=== PATIENT | male | born 1960 | race Caucasian/White ===

== ENCOUNTER 2017-11-21 08:50 | Emergency (ER) | payer BC ==
[2017-11-21] MEDS: LIDOCAINE WITH 8.4% SOD BICARB 3 ML DISP.SYRIN. INJ (09:28)
[2017-11-21] MEDS: DIPHTH,PERTUSS(ACELL),TET TOX 0.5 ML DISP.SYRIN. VAX IM (09:32)
== END 2017-11-21 10:34 | disposition home or self-care (01) ==
LOC: ER 10:34
DX: S61.411A Laceration without foreign body of right hand, initial encounter (principal); W26.8XXA Contact with other sharp object(s), not elsewhere classified, initial encounter; Y93.89 Activity, other specified; Y99.8 Other external cause status; Y92.89 Other specified places as the place of occurrence of the external cause
CPT/HCPCS: 12002; 90471; 90715; 99283-25

== ENCOUNTER → 2020-03-12 | Outpatient (CLI) | payer BC ==
[2017-11-21 08:50] VITALS: BP 109/70
--- NOTE | 2020-03-12 17:31 | KCIC ---
EXAM: Left knee, 3 views. HISTORY: Pain and swelling. COMPARISON: None. FINDINGS: 3 views of the left knee are obtained. There is minimal medial compartment joint space narrowing and spurring. There is enthesopathy along the superior patella. There is a small joint effusion. IMPRESSION: 1. Minimal medial compartment osteoarthritis of the left knee. 2. Small left knee effusion. Electronically signed by: Laura Reza MD (03/12/2020 5:28 PM) [id number]
== END | disposition home or self-care (01) ==
LOC: KCIC 14:50
PROVIDERS: ATTEND Nurse Practitioner Gerontology
DX: M17.12 Unilateral primary osteoarthritis, left knee (principal); M25.462 Effusion, left knee; M76.52 Patellar tendinitis, left knee
CPT/HCPCS: 73562